=== PATIENT | male | born 1960 | race Caucasian/White ===

== ENCOUNTER → 2016-08-02 | Outpatient (CLI) | payer BC ==
--- NOTE | 2016-08-02 10:22 | CR ---
EXAMINATION: Two-view chest (PA and Lateral views). HISTORY: Fever. FINDINGS: The trachea is midline. The cardiomediastinal silhouette is within normal limits. There is mild infi ltrate within the right apex and within the left lung base. No pleural effusion or pneumothorax. Osseous structures appear unremarkable. IMPRESSION: Infiltrate within the right apex and left lung base, likely representing early pneumonia.
== END ==
LOC: MW.CHFP 09:36
PROVIDERS: ATTEND Student in an Organized Health Care Education/Training Program
DX: R05 Cough (principal); R07.9 Chest pain, unspecified; R50.9 Fever, unspecified; R91.8 Other nonspecific abnormal finding of lung field
CPT/HCPCS: 71020; 71020-26

== ENCOUNTER → 2016-08-24 | Outpatient (CLI) | payer BC ==
[2016-08-24 10:05] LABS: CHLORIDE,CL 105 mmol/L (98-110); SODIUM,NA 139 mmol/L (136-146)
--- NOTE | 2016-08-24 11:05 | CR ---
EXAMINATION: Two-view chest (PA and Lateral views). HISTORY: Pneumonia. FINDINGS: The trachea is midline. The cardiomediastinal silhouette is within normal limits. Mild stable right apical and left basilar infiltrate, likely scarring. Mild hyperinflation and chronic interstitial pr ominence. Osseous structures appear unremarkable. IMPRESSION: Stable interstitial infiltrate within the right apex and left basilar region, likely scarring.
== END ==
LOC: MW.CHIM 09:23
PROVIDERS: ATTEND Internal Medicine
DX: Z12.5 Encounter for screening for malignant neoplasm of prostate (principal); J18.9 Pneumonia, unspecified organism; E78.5 Hyperlipidemia, unspecified; M05.69 Rheumatoid arthritis of multiple sites with involvement of other organs and systems; R91.8 Other nonspecific abnormal finding of lung field
CPT/HCPCS: 36415; 71020; 80053; 80061; 85025; G0103

== ENCOUNTER 2018-05-11 06:44 | Emergency (ER) | payer BC ==
[2018-05-11 06:59] VITALS: BP 102/81
--- NOTE | 2018-05-11 07:25 | EDM.PDOC ---
ED HPI GENERAL MEDICAL PROBLEM - General Chief Complaint: Skin Complaint Stated Complaint: SMALL BUMPS ON HEAD, EYES ARE RED Time Seen by Provider: 05/11/18 07:20 - History of Present Illness INITIAL COMMENTS - FREE TEXT/NARRATIVE: HISTORY AND PHYSICAL: History of present illness: Patient's a 57-year-old white male history rheumatoid arthritis presents with a concern of medical screening exam for intermittent subcutaneous nodules on the scalp that he feels might be related to therapy received. He did discuss this with his signs cleaner who states not to be concerned these nodules are not present on arrival here. No fever chills nausea vomiting or other complaints Review of systems: As per history of present illness and below otherwise all systems reviewed and negative. Past medical history: As per history of present illness and as reviewed below otherwise noncontributory. Surgical history: As per history of present illness and as reviewed below otherwise noncontributory. Social history: No reported history of drug or alcohol abuse. Family history: As per history of present illness and as reviewed below otherwise noncontributory. Physical exam: HEENT: Atraumatic, normocephalic, pupils reactive, negative for conjunctival pallor or scleral icterus, mucous membranes moist, throat clear, neck supple, nontender, trachea midline. Lungs: Clear to auscultation, breath sounds equal bilaterally, chest nontender. Heart: S1S2, regular, negative for clicks, rubs, or JVD. Abdomen: Soft, nondistended, nontender. Negative for masses or hepatosplenomegaly. Negative for costovertebral tenderness. Pelvis: Stable nontender. Genitourinary: Deferred. Rectal: Deferred. Extremities: Atraumatic, negative for cords or calf pain. Neurovascular unremarkable. Neuro: Awake, alert, oriented. Cranial nerves II through XII unremarkable. Cerebellum unremarkable. Motor and sensory unremarkable throughout. Exam nonfocal. Diagnostics: None Therapeutics: None Impression: #1 rheumatoid arthritis #2 medical screening exam Definitive disposition and diagnosis as appropriate pending reevaluation and review of above. denies pain Pain Score (Numeric/FACES): 0 - Related Data Allergies Allergy/AdvReac Type Severity Reaction Status Date / Time albuterol sulfate Allergy Facial Verified 05/11/18 06:56 [From Combivent] Swelling Iodinated Contrast- Oral and Allergy Shortness Verified 05/11/18 06:56 IV Dye of Breath ipratropium bromide Allergy Facial Verified 05/11/18 06:56 [From Combivent] Swelling z-kalie Allergy Swelling Uncoded 05/11/18 06:56 Home Meds: Home Meds Fluticasone/Salmeterol [Advair 100-50] 1 inh INH BID 10/25/13 [History] Loratadine 10 mg PO DAILY 05/11/18 [History] Roflumilast [Daliresp] 250 mcg PO DAILY 05/11/18 [History] Rosuvastatin Calcium 10 mg PO DAILY 05/11/18 [History] Tocilizumab [Actemra] 1 injection IM ASDIRECTED 05/11/18 [History] Past Medical History HEENT History: Reports: None Cardiovascular History: Reports: None Respiratory History: Reports: Asthma, Other (See Below) Other Respiratory History: Emphysema Gastrointestinal History: Reports: None Genitourinary History: Reports: None Musculoskeletal History: Reports: RA Neurological History: Reports: None Psychiatric History: Reports: None Endocrine/Metabolic History: Reports: None Hematologic History: Reports: None Immunologic History: Reports: None Oncologic (Cancer) History: Reports: None Dermatologic History: Reports: Eczema - Infectious Disease History Infectious Disease History: Reports: Measles - Past Surgical History Head Surgeries/Procedures: Reports: None Social & Family History - Family History Family Medical History: Noncontributory - Tobacco Use Smoking Status *Q: Never Smoker - Caffeine Use Caffeine Use: Reports: Soda - Recreational Drug Use Recreational Drug Use: No ED ROS GENERAL - Review of Systems Review Of Systems: ROS reveals no pertinent complaints other than HPI. ED EXAM, SKIN/RASH Exam: See Below (See dictation) Course - Vital Signs Last Recorded V/S: Last Vital Signs Temp 36.4 C 05/11/18 06:56 Pulse 80 05/11/18 06:56 Resp 18 05/11/18 06:56 BP 102/81 05/11/18 06:56 Pulse Ox 98 05/11/18 06:56 Departure - Departure Time of Disposition: 07:25 Disposition: Home, Self-Care 01 Condition: Good Clinical Impression: Encounter for medical screening examination, History of rheumatoid arthritis - Discharge Information Referrals: Jeffrey Pina MD [Primary Care Provider] - Additional Instructions: The following information is given to patients seen in the emergency department who are being discharged to home. This information is to outline your options for follow-up care. We provide all patients seen in our emergency department with a follow-up referral. The need for follow-up, as well as the timing and circumstances, are variable depending upon the specifics of your emergency department visit. If you don't have a primary care physician on staff, we will provide you with a referral. We always advise you to contact your personal physician following an emergency department visit to inform them of the circumstance of the visit and for follow-up with them and/or the need for any referrals to a consulting specialist. The emergency department will also refer you to a specialist when appropriate. This referral assures that you have the opportunity for followup care with a specialist. All of these measure are taken in an effort to provide you with optimal care, which includes your followup. Under all circumstances we always encourage you to contact your private physician who remains a resource for coordinating your care. When calling for followup care, please make the office aware that this follow-up is from your recent emergency room visit. If for any reason you are refused follow-up, please contact the [facility] emergency department at and asked to speak to the emergency department charge nurse. Continue current medications follow-up private medical doctor in rheumatology as discussed and return as needed as discussed
== END 2018-05-11 07:40 | disposition home or self-care (01) ==
LOC: MW.ED 06:44
DX: M06.9 Rheumatoid arthritis, unspecified (principal); Z88.8 Allergy status to other drugs, medicaments and biological substances; Z91.041 Radiographic dye allergy status; Z79.899 Other long term (current) drug therapy
CPT/HCPCS: 99282

== ENCOUNTER 2019-12-08 12:26 | Emergency (ER) | payer BC ==
[2019-12-08] MEDS ORDERED: Tetracaine HCl/PF 0.5% 4 ML Bottle EYEBOTH ONE (12:55)
--- NOTE | 2019-12-08 12:56 | EDM.PDOC ---
ED HPI GENERAL MEDICAL PROBLEM - General Chief Complaint: Eye Problems Stated Complaint: RT EYE PT Time Seen by Provider: 12/08/19 12:27 Source of Information: Reports: Patient History Limitations: Reports: No Limitations - History of Present Illness INITIAL COMMENTS - FREE TEXT/NARRATIVE: HISTORY AND PHYSICAL: History of present illness: Patient is a 59-year-old male who presents to the emergency room with complaints of right eye irritation. He states the eye itself has been red and has noticed a white linear marking on his iris. He denies any injury, trauma or exposure to foreign body. Denies any recent travel. Does not wear contact lenses or glasses. Patient denies any fever, chills, headache, change in vision, syncope or near syncope. Denies any chest pain, back pain, shortness of breath or cough. Denies any GI or symptoms. Patient has been eating and drinking appropriately. Review of systems: As per history of present illness and below otherwise all systems reviewed and negative. Past medical history: As per history of present illness and as reviewed below otherwise noncontributory. Surgical history: As per history of present illness and as reviewed below otherwise noncontributory. Social history: See social history for further information Family history: As per history of present illness and as reviewed below otherwise noncontributory. Physical exam: General: Well developed and well nourished. Alert and orientated x 3. Nontoxic in appearance and in no acute distress. Vital signs are stable and have been reviewed by me. Nursing notes were reviewed. HEENT: Atraumatic, normocephalic, pupils equal and reactive bilaterally, negative for conjunctival pallor or scleral icterus, scleral injection of right eye, white linear discoloration along the iris from the 5 - 3 o'clock position. SEE NOTES for details. Mucous membranes moist, TMs normal bilaterally, throat clear, neck supple, nontender, trachea midline. No drooling or trismus noted. No meningeal signs. No hot potato voice noted. Lungs: Clear to auscultation, breath sounds equal bilaterally. Normal work of breathing, no accessory muscles used. Heart: S1S2, regular rate and rhythm without overt murmur Skin: Intact, warm, dry. No lesions or rashes noted. Hematologic: No petechiae or purpra. Mucosa appropriate color and normal nail bed color and refill. Extremities: Atraumatic, moves all extremities per self without difficulty or deficits, negative for cords or calf pain. Neurovascular unremarkable. Neuro: Awake, alert, oriented. Cranial nerves II through XII unremarkable. Cerebellum unremarkable. Motor and sensory unremarkable throughout. Exam nonfocal. Notes: Tetracaine was used for an ethicist of the eye. Fluorescein eye exam demonstrates a corneal abrasion at the 5 to 3 o'clock position along the iris of the right eye. Upper and lid were inverted without any evidence of foreign body. I did have Dr Chang separately assess this patient as well due to the discoloration with abrasion, he agrees that this appears like an atypical abrasion. Patient has no intraoccular pain with eye movement, no FB noted. Slit lamp shows no unusual findings. We discussed with the patient the need to follow up with Ophthalmology. We discussed signs and symptoms that would prompt them to return to the Emergency Department. Medication, follow up and supportive care measures were reviewed and discussed. Voices understanding and is agreeable to plan of care. Denies any further questions or concerns at this time. Diagnostics: Fluroscene eye exam, Slit lamp exam Therapeutics: Tetracaine, visual acuity Prescription: Gentamicin gtts Impression: Corneal abrasion, right Plan: 1. Today your physical exam shows a corneal abrasion. Please take the antibiotic, 2 drops in the right eye 3-4 x daily over the next 5-7 days. 2. Alternate Tylenol and/or Ibuprofen as needed for pain. 3. Please call Ophthalmology on Tuesday for follow up. If your symptoms should worsen, new symptoms develop or any of the signs and symptoms we discussed should arise please return to the emergency room or call 911 (if needed). Definitive disposition and diagnosis as appropriate pending reevaluation and review of above. - Related Data Allergies Allergy/AdvReac Type Severity Reaction Status Date / Time albuterol sulfate Allergy Facial Verified 12/08/19 12:51 [From Combivent] Swelling Iodinated Contrast Media Allergy Shortness Verified 12/08/19 12:51 of Breath ipratropium bromide Allergy Facial Verified 12/08/19 12:51 [From Combivent] Swelling z-kalie Allergy Swelling Uncoded 12/08/19 12:51 Home Meds: Home Meds Fluticasone/Salmeterol [Advair 100-50] 1 inh INH BID 10/25/13 [History] Loratadine 10 mg PO DAILY 05/11/18 [History] Roflumilast [Daliresp] 250 mcg PO DAILY 05/11/18 [History] Rosuvastatin Calcium 10 mg PO DAILY 05/11/18 [History] Tocilizumab [Actemra] 1 injection IM ASDIRECTED 05/11/18 [History] Adalimumab [Humira(Cf) Pen] 1 dose .ROUTE ASDIRECTED 12/08/19 [History] Gentamicin [Garamycin 0.3% Ophth Soln] 2 drop EYERT TID 5 Days #1 bottle 12/08/19 [Rx] predniSONE [Prednisone] 5 mg .ROUTE DAILY 12/08/19 [History] Past Medical History HEENT History: Reports: None Cardiovascular History: Reports: None Respiratory History: Reports: Asthma, Other (See Below) Other Respiratory History: Emphysema Gastrointestinal History: Reports: None Genitourinary History: Reports: None Musculoskeletal History: Reports: RA Neurological History: Reports: None Psychiatric History: Reports: None Endocrine/Metabolic History: Reports: None Hematologic History: Reports: None Immunologic History: Reports: None Oncologic (Cancer) History: Reports: None Dermatologic History: Reports: Eczema - Infectious Disease History Infectious Disease History: Reports: Measles - Past Surgical History Head Surgeries/Procedures: Reports: None Social & Family History - Family History Family Medical History: Noncontributory - Caffeine Use Caffeine Use: Reports: Soda ED ROS GENERAL - Review of Systems Review Of Systems: Comprehensive ROS is negative, except as noted in HPI. ED EXAM GENERAL W FULL EYE - Physical Exam Exam: See Below (See dictation) Course - Vital Signs Last Recorded V/S: Last Vital Signs Temp 98.0 F 12/08/19 12:47 Pulse 95 12/08/19 12:47 Resp 18 12/08/19 12:47 BP 141/72 H 12/08/19 12:47 Pulse Ox 95 12/08/19 12:47 - Orders/Labs/Meds Orders: Active Orders 24 hr Category Date Time Status Visual Acuity [Vision Test] [RC] ASDIRECTED Care 12/08/19 12:56 Active Meds: Medications Discontinued Medications Generic Name Dose Route Start Last Admin Trade Name Freq PRN Reason Stop Dose Admin Tetracaine HCl 1 ml 12/08/19 12:55 12/08/19 13:10 Tetracaine 0.5% Steri-Unit Klarissa EYEBOTH 12/08/19 12:56 1 drop ASDIRECTED ONE Administration Departure - Departure Time of Disposition: 13:24 Disposition: Home, Self-Care 01 Clinical Impression: Corneal abrasion Qualifiers: Encounter type: initial encounter Laterality: right Qualified Code(s): S05.01XA - Injury of conjunctiva and corneal abrasion without foreign body, right eye, initial encounter - Discharge Information Prescriptions: Gentamicin [Garamycin 0.3% Ophth Soln] 2 drop EYERT TID 5 Days #1 bottle Instructions: Corneal Abrasion, [id number] Referrals: Jeffrey Pina MD [Primary Care Provider] - Forms: ED Department Discharge Additional Instructions: The following information is given to patients seen in the emergency department who are being discharged to home. This information is to outline your options for follow-up care. We provide all patients seen in our emergency department with a follow-up referral. The need for follow-up, as well as the timing and circumstances, are variable d epending upon the specifics of your emergency department visit. If you don't have a primary care physician on staff, we will provide you with a referral. We always advise you to contact your personal physician following an emergency department visit to inform them of the circumstance of the visit and for follow-up with them and/or the need for any referrals to a consulting specialist. The emergency department will also refer you to a specialist when appropriate. This referral assures that you have the opportunity for follow-up care with a specialist. All of these measure are taken in an effort to provide you with optimal care, which includes your follow-up. Under all circumstances we always encourage you to contact your private physician who remains a resource for coordinating your care. When calling for follow-up care, please make the office aware that this follow-up is from your recent emergency room visit. If for any reason you are refused follow-up, please contact the [facility] Emergency Department at and asked to speak to the emergency department charge nurse. [facility] [address] [place] [id number] [place] [address] Thank you for choosing the [facility] emergency department in [place] for your medical needs today. It was a pleasure caring for you. Today you were seen in the emergency department for eye irritation. 1. Today your physical exam shows a corneal abrasion. Please take the antibiotic, 2 drops in the right eye 3-4 x daily over the next 5-7 days. 2. Alternate Tylenol and/or Ibuprofen as needed for pain. 3. Please call Ophthalmology on Tuesday for follow up. If your symptoms should worsen, new symptoms develop or any of the signs and symptoms we discussed should arise please return to the emergency room or call 911 (if needed). Sepsis Event Note (ED) - Evaluation Sepsis Screening Result: No Definite Risk - Focused Exam Vital Signs: Vital Signs Temp Pulse Resp BP Pulse Ox 12/08/19 12:47 98.0 F 95 18 141/72 H 95 - My Orders Last 24 Hours: My Active Orders 12/08/19 12:56 Visual Acuity [Vision Test] [RC] ASDIRECTED - Assessment/Plan Last 24 Hours: My Active Orders 12/08/19 12:56 Visual Acuity [Vision Test] [RC] ASDIRECTED
[2019-12-09 17:47] VITALS: BP 143/76; PULSE 71
== END 2019-12-08 13:35 | disposition home or self-care (01) ==
LOC: MW.ED 12:26
DX: S05.01XA Injury of conjunctiva and corneal abrasion without foreign body, right eye, initial encounter (principal); J45.909 Unspecified asthma, uncomplicated; Z88.8 Allergy status to other drugs, medicaments and biological substances; Z91.041 Radiographic dye allergy status; Z88.1 Allergy status to other antibiotic agents; Z79.899 Other long term (current) drug therapy; X58.XXXA Exposure to other specified factors, initial encounter
CPT/HCPCS: 99282; 99283

== ENCOUNTER 2023-04-01 10:06 | Day surgery (SDC) | payer BC ==
[~2023-04-01 10:06] MED LIST: Lactated Ringers 1,000 ML IV SCH
[2023-04-01] MEDS ORDERED: propofoL 50 ML ONE (11:33)
[2023-04-01 12:12] VITALS: PULSE 63
[2023-04-01 12:29] VITALS: BP 104/68
[2023-04-01] MEDS ORDERED: Lactated Ringers 1,000 ML IV SCH (12:30)
== END 2023-04-01 12:35 | disposition home or self-care (01) ==
LOC: MW.SDS 10:06
PROVIDERS: ATTEND Surgery
DX: Z12.11 Encounter for screening for malignant neoplasm of colon (principal); K63.5 Polyp of colon; E78.5 Hyperlipidemia, unspecified; J44.9 Chronic obstructive pulmonary disease, unspecified; M25.559 Pain in unspecified hip; M54.50 Low back pain, unspecified; M05.69 Rheumatoid arthritis of multiple sites with involvement of other organs and systems; Z88.1 Allergy status to other antibiotic agents; Z79.899 Other long term (current) drug therapy; Z79.51 Long term (current) use of inhaled steroids; Z87.891 Personal history of nicotine dependence
CPT/HCPCS: 45380; J2704; J7120